=== PATIENT | female | born 1975 | race Caucasian/White ===

== ENCOUNTER 2017-10-19 23:47 | Inpatient (IN) | payer OTHER ==
[~2017-10-19] VITALS: Ht 165.1 cm; Wt 62.0 kg
[~2017-10-19 23:47] MED LIST: ACET325 PO; AMOX500T PO; BENZ100 PO; MUCI600T PO; ZITH250T PO
[2017-10-19 23:57] VITALS: BP 119/59; PULSE 54; RESP 12; TEMP 98.4; O2SAT 98
--- NOTE | 2017-10-20 01:03 | PD ---
HPI Chief Complaint: Skin Problem Time Seen by Provider: 00:57 Travel History International Travel<30 days: No Contact w/Intl Traveler<30days: No Traveled to known affect area: No History of Present Illness HPI The patient is a 42-year-old female that has had umbilical pain for 3 days. It is becoming more painful to the touch and has turned red. She denies any nausea or vomiting. She denies any abdominal distention. PFSH Past Medical History Diminished Hearing: No Medical other: Yes (urethral implantation) Tetanus Vaccination: Unknown Influenza Vaccination: Yes ?: Not Tubal Ligation: Yes Past Surgical History Section: Yes (x2) Social History Alcohol Use: Yes (OCC WINE) Tobacco Use: No Substance Use: No Allergies-Medications (Allergen,Severity, Reaction): Coded Allergies: No Known Allergies (Unverified Adverse Reaction, Unknown, 10/20/17) Reported Meds & Prescriptions Reported Meds & Active Scripts Active Review of Systems Except as stated in HPI: all other systems reviewed are Neg Physical Exam Narrative GENERAL: The patient is alert, oriented 3 in moderate apparent distress with her umbilical discomfort. Her vital signs are normal. SKIN: Focused skin assessment warm/dry. The umbilicus is erythematous and about 1-1/2 cm in diameter. It is exquisitely tender to the touch and the patient will not allow any attempted reduction. HEAD: Atraumatic. Normocephalic. EYES: Pupils equal and round. No scleral icterus. No injection or drainage. ENT: No nasal bleeding or discharge. Mucous membranes pink and moist. NECK: Trachea midline. No JVD. CARDIOVASCULAR: Regular rate and rhythm. No murmur appreciated. RESPIRATORY: No accessory muscle use. Clear to auscultation. Breath sounds equal bilaterally. GASTROINTESTINAL: Abdomen soft, non-tender except for the umbilicus, nondistended. Hepatic and splenic margins not palpable. No guarding or rebound is present. MUSCULOSKELETAL: No obvious deformities. No clubbing. No cyanosis. No edema. NEUROLOGICAL: Awake and alert. No obvious cranial nerve deficits. Motor grossly within normal limits. Normal speech. PSYCHIATRIC: Appropriate mood and affect; insight and judgment normal. Data Data Last Documented VS Vital Signs Date Time Temp Pulse Resp B/P (MAP) Pulse Ox O2 Delivery O2 Flow Rate FiO2 10/19/17 23:57 98.4 54 12 119/59 (79) [address] Abd/Pel W/O Iv Contrast (10/20/17 00:58) Consult General Surgery (10/20/17 ) Complete Blood Count With Diff (10/20/17 02:03) Comprehensive Metabolic Panel (10/20/17 02:03) Prothrombin Time / Inr (Pt) (10/20/17 02:03) Admit To Inpatient (10/20/17 ) Vital Signs (Adult) Q4H (10/20/17 02:03) Activity Oob Ad Zakia (10/20/17 02:03) Intake + Output ROSA ISELA.QSHIFT (10/20/17 02:03) Diet Clear Liquid (10/20/17 Breakfast) Sodium Chlor 0.9% 1000 Ml Inj (Ns 1000 M (10/20/17 02:03) Sodium Chloride 0.9% Flush (Ns Flush) (10/20/17 02:15) Sodium Chloride 0.9% Flush (Ns Flush) (10/20/17 09:00) Ondansetron Inj (Zofran Inj) (10/20/17 02:15) Comprehensive Metabolic Panel (10/21/17 06:00) Complete Blood Count With Diff (10/21/17 06:00) Scd Bilateral/Knee High ROSA ISELA.BID (10/20/17 02:03) Barry Bilateral/Knee High ROSA ISELA.QSHIFT (10/20/17 02:04) Acetaminophen (Tylenol) (10/20/17 02:15) Acetamin-Hydrocod 325-5 Mg (Silver 5-325 (10/20/17 02:15) Morphine Inj (Morphine Inj) (10/20/17 02:15) Docusate Sodium-Senna (Latoya-Colace) (10/20/17 09:00) Magnesium Hydroxide Liq (Milk Of Magnesi (10/20/17 02:15) Sennosides (Senokot) (10/20/17 02:15) Bisacodyl Supp (Dulcolax Supp) (10/20/17 02:15) Lactulose Liq (Lactulose Liq) (10/20/17 02:15) Inpatient Certification (10/20/17 ) MDM Medical Decision Making Medical Screen Exam Complete: Yes Emergency Medical Condition: Yes Medical Record Reviewed: Yes Interpretation(s) The CT abdomen/pelvis without IV contrast shows a periumbilical hernia containing mesenteric fat. There is no bowel present. Differential Diagnosis Incarcerated umbilical hernia, strangulated umbilical hernia, infected umbilical hernia Narrative Course The patient likely has a strangulated umbilical hernia containing mesenteric fat. She is painful and will be admitted to Dr. Get MERRILL for pain control with a consult to Dr. Skinner. I discussed the patient with both physicians. Diagnosis Primary Impression: Strangulated umbilical hernia Admitting Information Admitting Physician Requests: Admit Quinton Redd MD Oct 20, 2017 01:03
--- NOTE | 2017-10-20 01:32 | RADRPT ---
EXAM DATE/TIME: 10/20/2017 01:03 [facility] COMPARISON: No previous studies available for comparison. INDICATIONS : Question of umbilical hernia. Redness and swelling status post lifting. ORAL CONTRAST: No oral contrast ingested. RADIATION DOSE: 11.10 CTDIvol (mGy) MEDICAL HISTORY : None SURGICAL HISTORY : Tubal ligation. section.urethral implant ENCOUNTER: Initial ACUITY: 3 days PAIN SCALE: 5/10 LOCATION: Umbilical TECHNIQUE: Volumetric scanning of the abdomen and pelvis was performed. Using automated exposure control and ad justment of the mA and/or kV according to patient size, radiation dose was kept as low as reasonably achievable to obtain optimal diagnostic quality images. DICOM format image data is available electro nically for review and comparison. FINDINGS: LOWER LUNGS: The visualized lower lungs are clear. LIVER: Homogeneous density without lesion. There is no dilation of the biliary tree. No calcified gallston es. SPLEEN: Normal size without lesion. PANCREAS: Within normal limits. KIDNEYS: Normal in size and shape. There is no mass, stone, or hydronephrosis. ADRENAL GLANDS: Within normal limits. VASCULAR: There is no aortic aneurysm. BOWEL/MESENTERY: No oral contrast was given limiting the sensitivity of the exam. The stomach, small bowel, and colon demonstrate no acute abnormality. There is no free intraperitoneal air or fluid. ABDOMINAL WALL: There a periumbilical hernia containing mesenteric fat. There is no bowel present. RETROPERITONEUM: There is no lymphadenopathy. BLADDER: No wall thickening or mass. REPRODUCTIVE: Within normal limits. INGUINAL: There is no lymphadenopathy or hernia. MUSCULOSKELETAL: Within normal limits for patient age. CONCLUSION: 1. Periumbilical hernia containing mesenteric fat. There is no bowel present. 2. Unremarkable bowel gas pattern. Darius Summers MD on October 20, 2017 at 1:28 Board Certified Radiologist. This report was verified electronically.
[2017-10-20] MEDS ORDERED: MAGNESIUM HYDROXIDE SUSP 30 ML CUP PO PRN (02:15)
[2017-10-20] MEDS ORDERED: SENNOSIDES 8.6 MG TAB PO PRN (02:15)
[2017-10-20] MEDS ORDERED: SODIUM CHLORIDE 0.9% FLUSH 10 ML FLUSH IV FLUSH PRN (02:15)
[2017-10-20] MEDS ORDERED: ONDANSETRON HCL 4 MG/2 ML VIAL IVP PRN (02:15)
[2017-10-20] MEDS ORDERED: ACETAMINOPHEN 325 MG TAB PO PRN (02:15)
[2017-10-20] MEDS ORDERED: BISACODYL 10 MG SUPP RECTAL PRN (02:15)
[2017-10-20] MEDS ORDERED: MORPHINE SULFATE 4 MG/ML INJ IV PUSH PRN (02:15)
[2017-10-20] MEDS ORDERED: ACETAMINOPHEN/HYDROcodone 325 MG/5 MG TAB PO PRN (02:15)
[2017-10-20] MEDS ORDERED: LACTULOSE SYRUP 20 GM/30 ML CUP PO PRN (02:15)
[2017-10-20 02:27] LABS: AUTOMATED NEUTROPHIL # 3.3 TH/MM3 (1.8-7.7); BASOPHIL % 0.5 % (0.0-2.0); EOSINOPHIL # 0.2 TH/MM3 (0-0.4); EOSINOPHIL % 2.8 % (0.0-4.0); HEMATOCRIT 43.3 % (35.0-46.0); HEMO FLAGS DIFF FINAL; LYMPHOCYTE # 2.3 TH/MM3 (1.0-4.8); MEAN CELL VOLUME 89.1 FL (80.0-100.0); MEAN CORPUSCULAR HEMOGLOBIN 28.6 PG (27.0-34.0); MEAN CORPUSCULAR HGB CONC 32.2 % (32.0-36.0); MONO % 8.6 % (0.0-8.0); NEUT % 53.1 % (16.0-70.0); PLATELET COUNT 294 TH/MM3 (150-450); RED BLOOD COUNT 4.86 MIL/MM3 (4.00-5.30); RED CELL DISTRIBUTION WIDTH 12.6 % (11.6-17.2); WHITE BLOOD COUNT 6.4 TH/MM3 (4.0-11.0)
[2017-10-20 02:36] LABS: CHLORIDE 102 MEQ/L (98-107); POTASSIUM 3.5 MEQ/L (3.5-5.1); SODIUM (NA) 137 MEQ/L (136-145)
[2017-10-20 02:39] LABS: INTERNATIONAL NORMALIZED RATIO 0.9 RATIO; PROTHROMBIN TIME - PATIENT 10.1 SEC (9.8-11.6)
[2017-10-20 02:40] LABS: ANION GAP 6 MEQ/L (5-15); BICARBONATE 29.1 MEQ/L (21.0-32.0); BLOOD UREA NITROGEN 19 MG/DL (7-18)
[2017-10-20 02:43] LABS: ALT (GPT) 24 U/L (10-53); AST (GOT) 21 U/L (15-37); GLOMERULAR FILTRATION RATE 63 ML/MIN (>89)
[2017-10-20 02:44] LABS: TOTAL BILIRUBIN ADULT 0.3 MG/DL (0.2-1.0)
[2017-10-20 02:46] LABS: ALKALINE PHOSPHATASE 64 U/L (45-117)
[2017-10-20 03:14] VITALS: BP 113/70
[2017-10-20] MEDS: SODIUM CHLOR 0.9% 1000 ML INJ 1,000 ML IV SCH ×2 (03:36→12:56)
[2017-10-20 04:00] VITALS: BP 138/75; PULSE 59; RESP 20; TEMP 98.2; O2SAT 100
[2017-10-20 08:51] VITALS: BP 113/64; PULSE 55; RESP 14; TEMP 97; O2SAT 99
[2017-10-20] MEDS ORDERED: DOCUSATE SODIUM 50 MG/SENNA 8.6 MG TAB PO SCH (09:00)
[2017-10-20] MEDS ORDERED: SODIUM CHLORIDE 0.9% FLUSH 10 ML FLUSH IV FLUSH SCH (09:00)
[2017-10-20] MEDS ORDERED: BUPIVACAINE/EPINEPHRINE 0.5% PF 30 ML VIAL ONE (09:02)
[2017-10-20] MEDS ORDERED: LIDOCAINE 1%/EPINEPHrine 1:100,000 SOLN 20 ML VIAL ONE (09:02)
--- NOTE | 2017-10-20 09:41 | HHI.HP ---
[facility] Service [facility] Primary Care Physician Vicky Hunt MD Admission Diagnosis strangulated umbilical hernia Diagnoses: (1) Strangulated umbilical hernia Diagnosis: Principal Chief Complaint: Umbilical pain Travel History International Travel<30 Days: No Contact w/Intl Traveler <30 Da: No Traveled to Known Affected Are: No History of Present Illness Written by Luan Redd, acting as scribe for Dr. Abdullahi on 10/20/17 at 09 :40. 42-year-old female with no chronic medical illnesses who presented to hospital because of umbilical pain. Patient indicates that she was lifting books on Sunday and then shortly after that she started developing pain in her umbilical area that aggressively got worse throughout the week. She states that it was worse whenever she moved, twisted. She indicates the pain was 5/5 on a pain scale. He started changing color and looking red and purple with increased pain. Because of those reasons she came to the emergency department for evaluation. Patient has CT scan done that did show periumbilical hernia containing mesenteric fat. ER physician contacted general surgery who recommended hospitalist admission with surgical consult. Patient states that she never had this problem before and he does not wear having any hernia in the past. She denies any abdominal pain, nausea, vomiting, constipation, diarrhea, hematochezia, melena. Review of Systems Gastrointestinal: COMPLAINS OF: Abdominal pain Except as stated in HPI: all other systems reviewed are Neg Past Family Social History Past Medical History No chronic medical illnesses Past Surgical History 2 Ureteral implantation Tubal ligation Reported Medications No chronic home medications Allergies: Coded Allergies: No Known Allergies (Unverified Allergy, Unknown, 10/20/17) Family History Reviewed is significant for both mother and father with heart disease, mother with pacemaker. Mother also had lung cancer Social History Patient has history of tobacco use approximately one half pack a cigarettes a day for 15 years. Denies any alcohol or illicit drugs Physical Exam Vital Signs Vital Signs Date Time Temp Pulse Resp B/P (MAP) Pulse Ox O2 Delivery O2 Flow Rate FiO2 10/20/17 08:51 97.0 55 14 113/64 (80) 99 10/20/17 04:00 98.2 59 20 138/75 (96) 100 10/20/17 03:14 59 18 113/70 (84) 98 10/19/17 23:57 98.4 54 12 119/59 (79) 98 Physical Exam GENERAL: Well-developed, well-nourished, in no acute distress. alert and orientated HEENT: Head is normocephalic without any lesions or masses noted. Facial features are symmetric. Eyes: Pupils equal round reactive to light. Extraocular muscles are intact. Conjunctivae were clear. Oropharyngeal: Pharynx without any erythema edema. Tongue is midline without deviation. Buccal mucosa is moist without any masses or lesions NECK: Supple without any masses. Trachea midline no deviation. No JVD, no bruits are appreciated CARDIAC: Regular rhythm, regular rate. S1/S2 are heard. No murmurs gallops or rubs. LUNGS: Clear to auscultation bilaterally. No wheeze, rhonchi or rales. No use of accessory muscles on inspiration or expiration. ABDOMEN: Soft, nontender. Nondistended. Bowel sounds heard in all 4 quadrants. No organomegaly or masses. Negative rebound, negative guarding. Umbilicus with enlargement noted and dark red coloration. Did not palpate due to patient request because of severe tenderness EXTREMITIES: No edema, pulses are equal bilaterally. No cyanosis or clubbing NEUROLOGY: Mood and affect appear appropriate. Cranial nerves II through XII grossly intact. Muscle strength 5/5 in upper and lower extremities bilaterally. Deep tendon reflexes are 2+ in upper and lower extremities bilaterally. Laboratory Laboratory Tests Test 10/20/17 02:05 White Blood Count 6.4 Red Blood Count 4.86 Hemoglobin 13.9 Hematocrit 43.3 Mean Corpuscular Volume 89.1 Mean Corpuscular Hemoglobin 28.6 Mean Corpuscular Hemoglobin Concent 32.2 Red Cell Distribution Width 12.6 Platelet Count 294 Mean Platelet Volume 8.6 Neutrophils (%) (Auto) 53.1 Lymphocytes (%) (Auto) 35.0 Monocytes (%) (Auto) 8.6 Eosinophils (%) (Auto) 2.8 Basophils (%) (Auto) 0.5 Neutrophils # (Auto) 3.3 Lymphocytes # (Auto) 2.3 Monocytes # (Auto) 0.6 Eosinophils # (Auto) 0.2 Basophils # (Auto) 0.0 CBC Comment DIFF FINAL Differential Comment Prothrombin Time 10.1 Prothromb Time International Ratio 0.9 Blood Urea Nitrogen 19 Creatinine 0.96 Random Glucose 85 Total Protein 8.0 Albumin 3.8 Calcium Level 8.7 Alkaline Phosphatase 64 Aspartate Amino Transf (AST/SGOT) 21 Alanine Aminotransferase (ALT/SGPT) 24 Total Bilirubin 0.3 Sodium Level 137 Potassium Level 3.5 Chloride Level 102 Carbon Dioxide Level 29.1 Anion Gap 6 Estimat Glomerular Filtration Rate 63 Result Diagram: 10/20/1720410/20/17204 Imaging Last Impressions Abdomen/Pelvis CT 10/20/1757 Signed Impressions: Service Date/Time: Friday, October 20, 2017 01:03 - CONCLUSION: 1. Periumbilical hernia containing mesenteric fat. There is no bowel present. 2. Unremarkable bowel gas pattern. MD Michelle Chacon VTE Risk Assessment Michelle VTE Risk Assessment: No/Low Risk (score <= 1) Caprini Risk Assessment Model Point Value = 1 Point Value = 2 Point Value = 3 Point Value = 5 Age 41-60 Minor surgery BMI > 25 kg/m2 Swollen legs Varicose veins or History of unexplained or recurrent spontaneous Oral contraceptives or hormone replacement Sepsis (< 1 month) Serious lung disease, including pneumonia (< 1 month) Abnormal pulmonary function Acute myocardial infarction Congestive heart failure (< 1 month) History of inflammatory bowel disease Medical patient at bed rest Age 61-74 Arthroscopic surgery Major open surgery (> 45 min) Laparoscopic surgery (> 45 min) Malignancy Confined to bed (> 72 hours) Immobilizing plaster cast Central venous access Age >= 75 History of VTE Family history of VTE Factor V Leiden Prothrombin [id number] Lupus anticoagulant Anticardiolipin antibodies Elevated serum homocysteine Heparin-induced thrombocytopenia Other congenital or acquired thrombophilia Stroke (< 1 month) Elective arthroplasty Hip, pelvis, or leg fracture Acute spinal cord injury (< 1 month) Prophylaxis Regimen Total Risk Factor Score Risk Level Prophylaxis Regimen 0-1 Low Early ambulation 2 Moderate Order ONE of the following: *Sequential Compression Device (SCD) *Heparin 5000 units SQ BID 3-4 Higher Order ONE of the following medications: *Heparin 5000 units SQ TID *Enoxaparin/Lovenox 40 mg SQ daily (WT < 150 kg, CrCl > 30 mL/min) *Enoxaparin/Lovenox 30 mg SQ daily (WT < 150 kg, CrCl > 10-29 mL/min) *Enoxaparin/Lovenox 30 mg SQ BID (WT < 150 kg, CrCl > 30 mL/min) AND/OR *Sequential Compression Device (SCD) 5 or more Highest Order ONE of the following medications: *Heparin 5000 units SQ TID (Preferred with Epidurals) *Enoxaparin/Lovenox 40 mg SQ daily (WT < 150 kg, CrCl > 30 mL/min) *Enoxaparin/Lovenox 30 mg SQ daily (WT < 150 kg, CrCl > 10-29 mL/min) *Enoxaparin/Lovenox 30 mg SQ BID (WT < 150 kg, CrCl > 30 mL/min) AND *Sequential Compression Device (SCD) Assessment and Plan Problem List: (1) Strangulated umbilical hernia ICD Code: K42.0 - Umbilical hernia with obstruction, without gangrene Status: Acute Assessment and Plan 42-year-old female with Strangulated umbilical hernia with mesenteric fat General surgery consulted for management Continue IV fluids, pain control Further recommendations from general surgery DVT prevention Sequential compression devices Discharge disposition Discharge home in stable condition once cleared by surgery Activity: Ad lisha. Diet: Advance per surgery Medications per medication reconciliation Follow-up primary medical doctor in one week, surgeon in 2 weeks This note was transcribed by ricki Redd. I, Dr. Apolinar Abdullahi personally performed the history, physical exam, and medical decision making; and confirmed the accuracy of the information in the transcribed note. Authenticated by Dr. Apolinar Abdullahi on 10/20/17 at 09:40. Code Status Full code Discussed Condition With Patient Physician Certification 2 Midnight Certification Type: Admission for Inpatient Services Order for Inpatient Services The services are ordered in accordance with Medicare regulations or non- Medicare payer requirements, as applicable. In the case of services not specified as inpatient-only, they are appropriately provided as inpatient services in accordance with the 2-midnight benchmark. Estimated LOS (days): 1 days is the estimated time the patient will need to remain in the hospital, assuming treatment plan goals are met and no additional complications. Post-Hospital Plan: Not yet determined Luan Redd Oct 20, 2017 09:41 Apolinar Abdullahi MD Oct 20, 2017 09:41
[2017-10-20] MEDS ORDERED: ceFAZolin 2 GM PREMIX 50 ML ONE (09:55)
[2017-10-20] MEDS ORDERED: CHLORHEXIDINE GLUCONATE 2 % 1 PACK (2 CLOTHS) TOPICAL PRN (10:15)
[2017-10-20] MEDS ORDERED: METOPROLOL TARTRATE 25 MG TAB PO PRN (10:15)
[2017-10-20] MEDS ORDERED: ceFAZolin 2 GM PREMIX 50 ML IV ONE (10:15)
[2017-10-20] MEDS ORDERED: SODIUM CHLORID 0.9% 500 ML IV PRN (10:15)
[2017-10-20] MEDS ORDERED: LACTATED RINGER'S 1000 ML IV PRN (10:15)
[2017-10-20] MEDS ORDERED: POVIDONE IODINE 5% (ANTISEPSIS KIT) 4 APPLICATIONS EACH NARE PRN (10:15)
[2017-10-20] MEDS ORDERED: MORPHINE SULFATE 8 MG/ML INJ ONE ×2 (11:47→11:51)
--- NOTE | 2017-10-20 11:53 | MB ---
cc: NEIL SHULTZ DATE OF CONSULTATION: 10/20/2017 REASON FOR CONSULTATION: Incarcerated umbilical hernia, abdominal pain. HISTORY OF PRESENT ILLNESS: The patient is a 42-year-old female who developed sudden onset of umbilical pain three days ago. This became worse and worse and it turned red and she became very concerned with overlying redness and presented to the emergency department at [facility]. The patient underwent evaluations found to have a non reducible umbilical hernia on physical exam by emergency room physician. Imaging was performed with a CT scan of the pelvis which showed a periumbilical fat, containing mesenteric fat. There was no evidence of bowel obstruction or small bowel incarcerated in the in the hernia. The patient denies any previous history of hernia repair or known history of a hernia. The patients pain was not controlled on oral medications and pain was 10/10 even with morphine and the patient was admitted for pain control and general surgery consultation. The patient states her pain still is significant. It was better overnight. The patient would like to have the hernia repaired. REVIEW OF SYSTEMS The system 12-point review of systems. The patient has had pertinent negatives of her mentioned above in history present illness. PAST MEDICAL HISTORY None PAST SURGICAL HISTORY No previous abdominal surgeries ALLERGIES NO KNOWN DRUG ALLERGIES. MEDICATIONS No home medications. SOCIAL HISTORY Patient denies alcohol, tobacco or drug use with the exception of some social alcohol consumption. FAMILY HISTORY Noncontributory. PHYSICAL EXAMINATION VITAL SIGNS: Temperature 97.0, heart rate 55, blood pressure 113/64. IN GENERAL: The patient is a well-developed, well nourished female in no acute distress. HEAD, EYES, EARS, NOSE, AND THROAT: Head normocephalic, atraumatic. Pupils round and, to light. Sclerae is anicteric. Mucous membranes are moist. NECK: Neck is supple No jugular venous distention. Oral cavity is clear. LUNGS: The lungs clear to auscultation bilaterally. Nonlabored breathing pattern. HEART: The heart is regular rate and rhythm. PMI is nondisplaced. ABDOMEN: Abdomen soft, tender to palpitation on the umbilical area with obvious non reducible umbilical hernia with overlying erythema. There is no skin necrosis or purulent drainage and was no ascites. No organomegaly. No surgical scars or other hernias. BACK: No CVA tenderness. EXTREMITIES: No clubbing, cyanosis or edema. NEUROLOGIC: The patient is alert our x3, nonfocal peripheral exam. Cranial nerves: Cranial as through XII are grossly intact. LABORATORY VALUES: Laboratory values and white blood cell 6-0 point, hemoglobin 13.9. IMAGING STUDIES CT scan shows incarcerated umbilical hernia with fat. ASSESSMENT/PLAN The patient is a 42-year-old female, with acutely fat incarcerated umbilical hernia nonreducible. The patient had no evidence of bowel obstruction and no incarcerated bowel. Therefore this was no indication for any acute surgical intervention, based on the hernia. However the patient has had significant erythema and pain is not controlled with oral or IV antibiotics. There is also a concern for possible fat necrosis, secondary to infection. I discussed with the patient options including continued nonoperative management for elective repair versus urgent repair or some elective repair to rule out underlying infection or more concerning process. Discussed risks, benefits, alternatives to an urgent open umbilical hernia repair. The patient does wish to proceed urgently with open umbilical hernia repair and all questions as well as her 's questions were answered to satisfaction. We proceeded operating room the next available time based on operating room schedule for open umbilical hernia repair. MD JUAN Dumont/anusha /10:12 AM /11:14 AM
[2017-10-20 12:00] VITALS: BP 132/74; PULSE 75; RESP 20; TEMP 98.9; O2SAT 86
[2017-10-20] MEDS ORDERED: DO NOT ADM ANY ANTICOAGULANT DRUGS PRN (12:00)
[2017-10-20 12:05] VITALS: BP 110/62; PULSE 70; RESP 16; O2SAT 100
[2017-10-20] MEDS ORDERED: PERI PO (12:10)
--- NOTE | 2017-10-20 12:10 | HHI.DCPOC ---
Discharge Care Plan Diagnosis: (1) Strangulated umbilical hernia Goals to Promote Your Health * To prevent worsening of your condition and complications * To maintain your health at the optimal level Directions to Meet Your Goals Take your medications as prescribed Follow your dietary instruction Follow activity as directed Keep your appointments as scheduled Take your immunizations and boosters as scheduled If your symptoms worsen call your PCP, if no PCP go to Urgent Care Center or Emergency Room Smoking is Dangerous to Your Health. Avoid second hand smoke Call the 24-hour hour crisis hotline for domestic abuse at Luan Redd Oct 20, 2017 12:10
--- NOTE | 2017-10-20 16:51 | MP ---
cc: NEIL SHULTZ DATE OF SURGERY: 10/20/2017. PREOPERATIVE DIAGNOSIS: Incarcerated umbilical hernia. POSTOPERATIVE DIAGNOSIS: Incarcerated umbilical hernia. OPERATIVE PROCEDURE PERFORMED: Open primary repair of fat and acutely incarcerated umbilical hernia (hernia 1.5 cm x 1.5 cm with an acutely incarcerated omentum with strangulation and necrosis of omental fat). ATTENDING SURGEON: Neil Shultz M.D. BANANA LOADER: Staff. ANESTHESIA: General and local anesthetic. COMPLICATIONS: None. ESTIMATED BLOOD LOSS: Less than 10 cc. FINDINGS: A 1.5 cm x 1.5 cm acutely incarcerated omental fat umbilical hernia with strangulation and early fat necrosis changes sent for pathology: INDICATIONS FOR THE PROCEDURE: The patient is a 42-year-old female who presented to [facility] with an acutely incarcerated umbilical hernia on CT scan that showed it to have some fat incarceration and some erythema and increasing pain. There was concern for necrosis or even possible infection. The patient was admitted and general surgery was consulted. After discussion with the patient about the risks, benefits, and alternatives to treatment including open umbilical hernia repair urgently, she agreed to undergo the procedure. DESCRIPTION OF THE PROCEDURE IN DETAIL: The patient was taken to the operating room at [facility] and placed under general endotracheal anesthesia. The patient's abdomen was prepped and draped in the usual sterile fashion. A time out was performed. Local anesthetic was instilled throughout the umbilical area. We made a curvilinear incision approximately 3 cm in length below the umbilicus with a #15 blade scalpel. Using a hemostat and the Bovie electrocautery to take the umbilical skin off the hernia sac, we completely dissected out the hernia sac and resected this hernia sac and its contents. There was some necrotic fat but no obvious infection in the hernia contents. This was omental fat. There was no viscera. At this point in time, we evaluated the hernia; it was about 1.5 cm x 1.5 cm. Everything necrotic was resected and then the remaining omentum was reduced back down into the abdomen. We freed up the edges with the Bovie electrocautery to give us good cut fascial edges with fat cleared 360 degrees around the edge of the fascia. We closed the hernia in a horizontal fashion with several interrupted #0 Prolene sutures. We had an excellent technical closure. There was essentially no tension at all in this closure due to the small size of the hernia. We then placed the umbilical skin back down to the base of the abdominal wall with a 3-0 Vicryl and closed the skin with 4-0 Monocryl and Dermabond. A Band-Aid and a dressing was placed as well. The patient was discontinued from anesthesia and taken to the post-anesthesia care unit in stable condition. The patient tolerated the procedure well with no apparent complications. All counts were correct. I was present and scrubbed for the entire procedure. MD JUAN Dumont/ADONAY /11:12 AM /4:37 PM
== END 2017-10-20 15:27 | disposition home or self-care (01) | DRG 354 ==
LOC: PHED 23:47 → PHEDA 10-20 02:25 → PH3B 10-20 03:23
PROVIDERS: ADMIT Hospitalist; ATTEND Hospitalist
PROC: 0DBU0ZZ Excision of Omentum, Open Approach (ICD-10-PCS; 2017-10-20)
PROC: 0WQF0ZZ Repair Abdominal Wall, Open Approach (ICD-10-PCS; principal; 2017-10-20 10:07)
DX: K42.0 Umbilical hernia with obstruction, without gangrene (principal); K65.4 Sclerosing mesenteritis; Z87.891 Personal history of nicotine dependence
CPT/HCPCS: 74176; 80053; 85025; 85610; 88302; 99285; J0690; J2270; J7030; J7120